=== PATIENT | male | born 1960 | race African-American/Black ===

== ENCOUNTER 2019-11-21 19:58 | Observation (INO) ==
[2019-11-21 20:59] LABS: Basophils # 0.1 10*3/uL (0.0-0.2); Eosinophils # 0.2 10*3/uL (0.0-0.87); Eosinophils % 2.1 % (0.00-10.9); Hematocrit 33.4 VOL% (42.0-52.0); Hemoglobin 9.8 GM/DL (14.0-18.0); Immature Granulocytes % 0.3 %; Immature Granulocytes Absolute 0.02 #; Lymphocytes # 2.3 10*3/uL (1.4-4.0); Lymphocytes % 32.5 % (21.2-54.2); Mean Corpuscular HGB Conc 29.3 GM/DL (32-36); Mean Corpuscular Volume 62.9 FL (87-102); Monocytes % 16.5 % (1.7-12.7); Neutrophils % 47.6 % (38.7-73.9); Platelet Count 346 T/CUMM (130-400); Red Blood Count 5.31 MC/CUMM (3.8-5.5); Red Cell Distribution Width 21.6 % (9.3-17.3); White Blood Count 7.2 T/CUMM (4-12)
[2019-11-21 21:08] LABS: Apearance,Urine CLEAR (Clear); Bilirubin,Urine Negative (Negative); Blood, Urine Negative (Negative); Glucose,Urine (UA) >=500 mg/dL (Negative); Ketones,Urine Negative (Negative); Mucus,Urine Occasional /LPF (Occasional); Nitrite,Urine Negative (Negative); Protein,Urine Negative; RBC,Urine 1 /HPF (0-4); Squamous Epithelial Cell,Urine Occasional /HPF (0-10); Urine Color Yellow (Yellow); Urine Specific Gravity 1.017 (1.001-1.035); WBC,Urine 1 /HPF (0-6)
[2019-11-21 21:11] LABS: INR 1.1; PT Patient Result 11.7 SECS (9.8-11.9); Partial Thromboplastin Time 28.6 SECS (23.9-33.8)
[2019-11-21 21:22] LABS: Eosinophils 2 % (0-10); Hypochromasia 1+; Lymphocytes 43 % (20-55); Segmented Neutrophils 40 % (50-85); Total Cells Counted 100
[2019-11-21 21:23] LABS: Anisocytosis 1+; Elliptocytes 1+; Platelet Estimate Adequate; Polychromasia Few; Schistocytes 1+; Target Cells 1+
[2019-11-21 21:30] LABS: Albumin 3.5 G/DL (3.4-5.0); Bilirubin,Total 0.9 MG/DL (0.2-1.0); Calcium 8.8 MG/DL (8.5-10.1); Total Protein 8.2 G/DL (6.4-8.3)
[2019-11-21] MEDS ORDERED: ONDANSETRON 4 MG/2 ML VIAL IV PRN (21:50)
[2019-11-21] MEDS ORDERED: DEXTROSE 50% 25 GM/50 ML VIAL IV PRN ×2 (21:50→23:01)
[2019-11-21] MEDS ORDERED: GLUCAGON 1 MG VIAL IM PRN (21:50)
[2019-11-21] MEDS ORDERED: ACETAMINOPHEN 325 MG TABLET PO PRN (21:50)
[2019-11-21] MEDS ORDERED: LABETALOL 20 MG/4 ML SYRINGE IV PRN (22:11)
[2019-11-21] MEDS ORDERED: LORazepam 2 MG/1 ML VIAL IV PRN (23:00)
[2019-11-22 08:02] LABS: Albumin 3.4 G/DL (3.4-5.0); Bilirubin,Total 1.4 MG/DL (0.2-1.0); Calcium 8.9 MG/DL (8.5-10.1); Osmolality,Calculated 273.7 MOS/KG (273-304); Risk Ratio 2.72; Total Protein 7.8 G/DL (6.4-8.3); VLDL CHOLESTEROL 23.2 MG/DL
[2019-11-22 08:12] LABS: Basophils # 0.1 10*3/uL (0.0-0.2); Basophils % 0.9 % (0.0-0.8); Eosinophils # 0.2 10*3/uL (0.0-0.87); Eosinophils % 2.3 % (0.00-10.9); Hematocrit 34.3 VOL% (42.0-52.0); Immature Granulocytes % 0.3 %; Immature Granulocytes Absolute 0.02 #; Lymphocytes # 1.8 10*3/uL (1.4-4.0); Lymphocytes % 22.8 % (21.2-54.2); Mean Corpuscular HGB Conc 29.7 GM/DL (32-36); Mean Corpuscular Volume 62.3 FL (87-102); Mean Platelet Volume 9.7 FL (9.6-12.0); Monocytes % 13.1 % (1.7-12.7); Neutrophils % 60.6 % (38.7-73.9); Platelet Count 310 T/CUMM (130-400); Red Blood Count 5.51 MC/CUMM (3.8-5.5); Red Cell Distribution Width 21.9 % (9.3-17.3); White Blood Count 7.9 T/CUMM (4-12)
[2019-11-22 08:13] LABS: Hemoglobin 10.2 GM/DL (14.0-18.0)
[2019-11-22] MEDS: INSULIN REGULAR 100 UNIT/ML SUBCUT SCH ×4 (08:56→22:52)
[2019-11-22] MEDS: MULTIVITAMIN (CENTRUM) TABLET PO SCH (10:00)
[2019-11-22] MEDS: FOLIC ACID 1 MG TABLET PO SCH (10:00)
[2019-11-22] MEDS: ATORVASTATIN 80 MG TABLET PO SCH ×2 (10:11→21:42)
[2019-11-22] MEDS: PANTOPRAZOLE 40 MG TABLET PO SCH (10:12)
[2019-11-22] MEDS: METOPROLOL TARTRATE 50 MG TABLET PO SCH ×2 (10:12→21:42)
[2019-11-22] MEDS: LOSARTAN 50 MG TABLET PO SCH (10:12)
[2019-11-22] MEDS: amLODIPine 10 MG TABLET PO SCH (10:12)
[2019-11-22] MEDS: FUROSEMIDE 40 MG TABLET PO SCH (10:12)
[2019-11-22] MEDS: AMIODARONE 200 MG TABLET PO SCH ×2 (10:13→21:42)
[2019-11-22] MEDS: THIAMINE 100 MG TABLET PO SCH (10:13)
[2019-11-22] MEDS: allopurinoL 100 MG TABLET PO SCH (10:13)
[2019-11-22] MEDS: APIXABAN 5 MG TABLET PO SCH ×2 (10:13→21:42)
[2019-11-23] MEDS: INSULIN REGULAR 100 UNIT/ML SUBCUT SCH (08:35)
[2019-11-23] MEDS: MULTIVITAMIN (CENTRUM) TABLET PO SCH (09:29)
[2019-11-23] MEDS: AMIODARONE 200 MG TABLET PO SCH (09:29)
[2019-11-23] MEDS: LOSARTAN 50 MG TABLET PO SCH (09:29)
[2019-11-23] MEDS: APIXABAN 5 MG TABLET PO SCH (09:30)
[2019-11-23] MEDS: METOPROLOL TARTRATE 50 MG TABLET PO SCH (09:30)
[2019-11-23] MEDS: FOLIC ACID 1 MG TABLET PO SCH (09:30)
[2019-11-23] MEDS: amLODIPine 10 MG TABLET PO SCH (09:30)
[2019-11-23] MEDS: FUROSEMIDE 40 MG TABLET PO SCH (09:30)
[2019-11-23] MEDS: PANTOPRAZOLE 40 MG TABLET PO SCH (09:30)
[2019-11-23] MEDS: allopurinoL 100 MG TABLET PO SCH (09:31)
[2019-11-23] MEDS: THIAMINE 100 MG TABLET PO SCH (09:31)
[2019-11-23 11:12] VITALS: BP 127/68
== END 2019-11-23 11:11 | disposition home health service (06) ==
LOC: N.EDINP 19:58 → N.ED 19:58 → N.3E 23:06
PROVIDERS: ADMIT Family Medicine; ATTEND Family Medicine